=== PATIENT | male | born 1985 | race Caucasian/White ===

== ENCOUNTER 2023-01-11 04:41 | Emergency (ER) | payer SELFPAY ==
[~2023-01-11] VITALS: Ht 170.2 cm; Wt 79.2 kg
[2023-01-11 04:50] VITALS: BP 113/65
[2023-01-11] MEDS ORDERED: IBUP-2028 PO (06:10)
[2023-01-11] MEDS ORDERED: ACETAMINOPHEN 325MG TABLET PO ONE (06:15)
== END 2023-01-11 07:08 | disposition home or self-care (01) ==
LOC: ER 04:41
DX: S62.304A Unspecified fracture of fourth metacarpal bone, right hand, initial encounter for closed fracture (principal); X58.XXXA Exposure to other specified factors, initial encounter; Y93.89 Activity, other specified; Y92.89 Other specified places as the place of occurrence of the external cause; Y99.8 Other external cause status
CPT/HCPCS: 29125; 73130; 99283